=== PATIENT | male | born 1955 | race Caucasian/White ===

== ENCOUNTER → 2017-05-04 09:40 | Outpatient (CLI) | payer BC, SELFPAY ==
--- NOTE | 2017-05-04 09:43 | VDLE_ITS ---
Reason For Study: EDEMA RIGHT LEFT CFV is compressible, spontaneous, phasic, CFV is compressible, spontaneous, phasic, competent and demonstrates normal competent, and demonstrates normal augmentation. augmentation. PTV is compressible. FV is compressible, spontaneous, phasic, FV, POPV, T/P TRUNK AND PERV are DILATED and competent and demonstrates normal NONCOMPRESSIBLE C/W ACUTE DVT. augmentation. POP V is compressible, spontaneous, phasic, SFJ is competent. competent and demonstrates normal GSV is competent. augmentation. SSV is competent. T/P Trunk is compressible. Procedure PTV is compressible. Exam performed in department. LT PerV is compressible. The exam was diagnostic. SFJ is competent. A preliminary report was called and/or faxed GSV is competent. to Dr. Harper @ 10:35 am @ [phone]. SSV is competent. 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 Harper and to call office for follow up or questions. Interpretation Summary Acute deep vein thrombosis is noted in the right femoral vein. Acute deep vein thrombosis is noted in the right popliteal vein. Acute deep vein thrombosis is noted in the right tibio-peroneal trunk. Acute deep vein thrombosis is noted in the right peroneal vein. The right common femoral vein and posterior tibial vein are patent and compressible. The right common femoral vein is competent. Deep veins of the left lower extremity are patent and compressible segmentally. There is no evidence of left lower extremity deep vein thrombosis. Valvular competence appears intact within the proximal deep venous system on the left . The greater saphenous veins appear bilaterally patent and compressible segmentally. Sapheno-femoral junctions are bilaterally competent . Valvular competence appears to be intact segmentally within the greater saphenous veins bilaterally. Small saphenous veins are patent and competent bilaterally. Ordering Physician: Norman Harper Referring Physician: Leroy, Norman Performed By: Delia Trinh RDCS, RVT
== END ==
PROVIDERS: Family Provider Family Medicine; PCP Family Medicine; Visit Provider Family Medicine
DX: R60.0 Localized edema (principal)
CPT/HCPCS: 93970

== ENCOUNTER → 2017-05-08 11:29 | Outpatient (CLI) | payer BC, SELFPAY ==
--- NOTE | 2017-05-08 11:31 | CT_ITS ---
STUDY: CTA CHEST REASON FOR EXAM: Male, 61 years old. Dyspnea. Diagnosis of right lower extremity DVT. RADIATION DOSAGE (If Supplied By Facility): CTDIvol = ( 11.18 ) mGy, DLP = ( 798.80 ) mGycm TECHNIQUE: The examination was performed with the intravenous administration of 100mL ml of Isovue 370 contrast material. Post-processing of the angiographic images was performed, with multiplanar reformation and 3D reconstruction. Individualized dose optimization techniques were used for this CT. COMPARISON: None. FINDINGS: Prominent filling defects are seen in the distal portions of the right and left pulmonary arteries as well as of the upper and lower lobe pulmonary arterial branches. This is in keeping with a moderate flow of of bilateral pulmonary emboli. Normal thoracic aorta and visualized great vessels. There is no demonstrated aortic dissection. Normal heart and pericardium. Normal mediastinum. Normal hilar regions. Normal visualized trachea and bronchi. The lungs are well expanded. Normal pulmonary parenchyma. Normal pleura. Normal chest wall structures. There are degenerative changes of thoracic spine. Normal visualized upper abdomen. CT/CTA Chest W/WO Contrast IMPRESSION: Bilateral pulmonary embolism as described. The referring physician was notified of the results. Electronically Signed: Crow Avila MD at 12:53 EST Tel [phone], Service support ,
[2017-05-08 12:16] LABS: CREATININE FINGERSTICK 1.2 mg/dL (0.70-1.30); EGFR FINGERSTICK > 60.0000 mL/min (>60)
== END ==
PROVIDERS: Family Provider Family Medicine; PCP Family Medicine; Visit Provider Family Medicine
DX: I82.409 Acute embolism and thrombosis of unspecified deep veins of unspecified lower extremity (principal); R06.00 Dyspnea, unspecified
CPT/HCPCS: 71275; Q9967; A4216

== ENCOUNTER 2017-05-08 13:46 | Emergency (ER) | payer BC, SELFPAY ==
[2017-05-08 13:48] VITALS: BP 148/90; PULSE 62; RESP 16; TEMP 36.3; O2SAT 96; BMI 38.1
--- NOTE | 2017-05-08 15:34 | ED.VISSUMM ---
- ER Visit Summary Date of Service: 05/08/17 Chief Complaint: [Shortness of breath] History of Present Illness: The patient is a 61 M [presents to the emergency department with shortness of breath for several weeks. Patient states that 3 weeks ago he had a stress test and an echocardiogram with Dr. White that were unremarkable. Patient about a week ago developed swelling in his right leg and was diagnosed with a DVT 5 days ago and started on Xarelto. Today patient was following up with his primary care physician and complained of some ongoing dyspnea and therefore a CT scan of his chest was ordered which showed bilateral pulmonary emboli. Patient states that since being on the Xarelto his breathing is actually improved. He denies any chest pain. Overall patient feels well. Patient is never had a blood clot before. Patient states that last December he drove to [place] and back. He denies any trauma to his right leg. He denies recent surgery. He denies any history of cancer.] Physical Examination: [HEENT-PERRLA, EOMI. Cranial nerves II through XII grossly intact. TMs clear. Mucous membranes moist. No adenopathy. Cardiovascular-regular rate and rhythm without murmur or ectopy Lungs-clear to auscultation, chest wall stable without crepitus or subcu emphysema Abdomen-normoactive bowel sounds, soft, nontender, no rebound or rigidity, no peritoneal signs. Extremities-intact ?4, normal range of motion, normal pulses, atraumatic] Vital signs-blood pressure 148/90, temp 97 3, heart rate 62, respiratory rate 16, pulse ox 96% on room air Test Results: [None indicated] Emergency Department Course and Treatment: [Case was discussed with Dr. Norman Harper who is the patient's primary care physician. At this point patient is on the correct treatment and does not need any further intervention. Clinically patient looks well throughout a normal respiratory rate, blood pressure, and O2 saturation.] Treatment Plan: [Patient to continue with his Xarelto.] Disposition: [Discharged to home in stable condition] Impression: [Bilateral pulmonary emboli] This note was generated with [employer] dictation software. It may contain incorrect words, spelling, and punctuation that were not noted in review of the chart prior to signing ED Disposition - Plan for ED Patient: Chief Complaint: Shortness of Breath Referrals: Norman Harper MD [Primary Care Provider] -
--- NOTE | 2017-05-08 15:37 | ED.DCSUM_ITS ---
- ER Visit Summary Date of Service: 05/08/17 Chief Complaint: [Shortness of breath] History of Present Illness: The patient is a 61 M [presents to the emergency department with shortness of breath for several weeks. Patient states that 3 weeks ago he had a stress test and an echocardiogram with Dr. White that were unremarkable. Patient about a week ago developed swelling in his right leg and was diagnosed with a DVT 5 days ago and started on Xarelto. Today patient was following up with his primary care physician and complained of some ongoing dyspnea and therefore a CT scan of his chest was ordered which showed bilateral pulmonary emboli. Patient states that since being on the Xarelto his breathing is actually improved. He denies any chest pain. Overall patient feels well. Patient is never had a blood clot before. Patient states that last December he drove to [place] and back. He denies any trauma to his right leg. He denies recent surgery. He denies any history of cancer.] Physical Examination: [HEENT-PERRLA, EOMI. Cranial nerves II through XII grossly intact. TMs clear. Mucous membranes moist. No adenopathy. Cardiovascular-regular rate and rhythm without murmur or ectopy Lungs-clear to auscultation, chest wall stable without crepitus or subcu emphysema Abdomen-normoactive bowel sounds, soft, nontender, no rebound or rigidity, no peritoneal signs. Extremities-intact ?4, normal range of motion, normal pulses, atraumatic] Vital signs-blood pressure 148/90, temp 97 3, heart rate 62, respiratory rate 16 , pulse ox 96% on room air Test Results: [None indicated] Emergency Department Course and Treatment: [Case was discussed with Dr. Norman Harper who is the patient's primary care physician. At this point patient is on the correct treatment and does not need any further intervention. Clinically patient looks well throughout a normal respiratory rate, blood pressure, and O2 saturation.] Treatment Plan: [Patient to continue with his Xarelto.] Disposition: [Discharged to home in stable condition] Impression: [Bilateral pulmonary emboli] This note was generated with [employer] dictation software. It may contain incorrect words, spelling, and punctuation that were not noted in review of the chart prior to signing ED Disposition - Plan for ED Patient: Chief Complaint: Shortness of Breath Referrals: Norman Harper MD [Primary Care Provider] -
--- NOTE | 2017-05-08 15:38 | ED.DEP ---
ED Disposition - Plan for ED Patient: Chief Complaint: Shortness of Breath Instructions: Pulmonary Embolism Referrals: Norman Harper MD [Primary Care Provider] - 5-7 Days
[2017-05-08 15:44] VITALS: BP 142/86; PULSE 54; RESP 13; O2SAT 96
--- NOTE | 2017-05-08 15:44 | ED.RN ---
REVIEWED D/C INSTRUCTIONS, FOLLOW UP CARE, AND S/S THAT WOULD WARRANT A RETURN TO THE ED WITH PT. PT VERBALIZED AN UNDERSTANDING AND DENIES FURTHER QUESTIONS FOR THIS RN. PT SKIN P/W/D, RESP EVEN AND UNLABORED, PT A&O X 3, NO DISTRESS NOTED. PT AMBULATED OUT OF ED, GAIT STEADY.
== END 2017-05-08 15:45 | disposition home or self-care (01) ==
LOC: ED 14:53
PROVIDERS: Emergency Provider Emergency Medicine; Family Provider Family Medicine; PCP Family Medicine
DX: I26.99 Other pulmonary embolism without acute cor pulmonale (principal); I45.10 Unspecified right bundle-branch block; R60.0 Localized edema; F17.220 Nicotine dependence, chewing tobacco, uncomplicated; Z79.02 Long term (current) use of antithrombotics/antiplatelets
CPT/HCPCS: 99282

== ENCOUNTER → 2017-05-28 08:33 | Outpatient (CLI) | payer BC, SELFPAY ==
[2017-05-08 13:48] VITALS: BMI 38.1
[2017-05-08 15:44] VITALS: BP 142/86
--- NOTE | 2017-05-28 08:35 | VDLE_ITS ---
Reason For Study: Follow up DVT RIGHT LEFT GSV is normal. CFV is compressible, spontaneous, phasic, CFV is compressible, spontaneous, phasic, competent, and demonstrates normal competent and demonstrates normal augmentation. augmentation. FV is compressible, spontaneous, phasic, competent and demonstrates normal augmentation. PTV is compressible. Rt PopV, Rt T/P Trunk, and Rt PeroV are partially compressible, improvement noted from previous study Rt GastrocV is dilated and non compressible. Procedure Exam performed in department. A preliminary report was called and/or faxed to Dr. King. Interpretation Summary Acute deep vein thrombosis is noted in the right popliteal vein. Acute deep vein thrombosis is noted in the right tibio-peroneal trunk. Acute deep vein thrombosis is noted in the right peroneal vein. Acute deep vein thrombosis is noted in the right gastrocnemius vein. The remainder of the right lower extremity deep venous system is patent and compressible. The right common femoral vein and femoral vein are competent. The right greater saphenous vein appears patent and compressible segmentally. There has been improvement in the acute deep vein thrombosis since a prior study on 05/04/2017. Ordering Physician: Nj King Referring Physician: Norman Harper Performed By: Bibi Santoyo, ARIANNE, RVT
== END ==
PROVIDERS: Visit Provider Surgery
DX: I82.4Z1 Acute embolism and thrombosis of unspecified deep veins of right distal lower extremity (principal); I87.2 Venous insufficiency (chronic) (peripheral)
CPT/HCPCS: 93971

== ENCOUNTER → 2017-10-08 09:38 | Outpatient (CLI) | payer BC, SELFPAY ==
--- NOTE | 2017-10-08 09:41 | VDLE_ITS ---
Reason For Study: DVT RIGHT LEFT GSV is normal. CFV is compressible, spontaneous, phasic, CFV is compressible, spontaneous, phasic, competent, and demonstrates normal competent and demonstrates normal augmentation. augmentation. FV is compressible, spontaneous, phasic, competent and demonstrates normal augmentation. POP V is compressible, spontaneous, phasic, competent and demonstrates normal augmentation. T/P Trunk is compressible. PTV is compressible. RT PerV is compressible. Rt Gastroc V is noncompressible. Interpretation Summary Acute deep vein thrombosis is noted in the right gastrocnemius vein. The remainder of the right lower extremity deep venous system is patent and compressible. Valvular competence appears intact within the proximal deep venous system on the right . The right greater saphenous vein appears patent and compressible segmentally. Ordering Physician: Nj King Referring Physician: SHANNON ORDOÑEZ Performed By: Shilpa Liu, ARIANNE, RVT
== END ==
PROVIDERS: Visit Provider Surgery
DX: I82.401 Acute embolism and thrombosis of unspecified deep veins of right lower extremity (principal); I87.2 Venous insufficiency (chronic) (peripheral); I83.10 Varicose veins of unspecified lower extremity with inflammation
CPT/HCPCS: 93971

== ENCOUNTER → 2018-01-14 07:41 | Outpatient (CLI) | payer BC, SELFPAY ==
--- NOTE | 2018-01-14 07:43 | VDLE_ITS ---
Reason For Study: Limb Swelling RIGHT LEFT CFV is compressible, spontaneous, phasic, CFV is compressible, spontaneous, phasic, competent and demonstrates normal competent, and demonstrates normal augmentation. augmentation. FV is compressible, spontaneous, phasic, competent and demonstrates normal augmentation. POP V is compressible, spontaneous, phasic, competent and demonstrates normal augmentation. T/P Trunk is compressible. PTV is compressible. RT PerV is compressible. Rt GastrocV is partially compressible. SFJ is incompetent for greater than 0.5 seconds. GSV is incompetent throughout for greater than 0.5 seconds with a diameter measurement of 0.32 x 0.32 cm. SSV is competent. Procedure Exam performed in department. Interpretation Summary Chronic venous changes are noted in the right gastrocnemius vein, which is partially compressible. The remainder of the right lower extremity deep venous system is patent and compressible. Valvular competence appears intact within the proximal deep venous system on the right . The right greater saphenous vein appears patent and compressible segmentally. The right sapheno-femoral junction is incompetent . The right greater saphenous vein appears segmentally incompetent. The right small saphenous vein is patent and competent. Ordering Physician: Nj King Referring Physician: Miguel Harper M.D. Performed By: Jason Pardo RVT and Student
== END ==
PROVIDERS: Referring Provider Surgery; Visit Provider Surgery
DX: M79.605 Pain in left leg (principal); M79.89 Other specified soft tissue disorders; I87.2 Venous insufficiency (chronic) (peripheral); I83.10 Varicose veins of unspecified lower extremity with inflammation
CPT/HCPCS: 93971

== ENCOUNTER → 2018-08-29 | Outpatient (CLI) | payer BC, SELFPAY ==
--- NOTE | 2018-08-29 13:43 | VDLE_ITS ---
Reason For Study: DVT RIGHT LEFT GSV is normal. GSV is normal. CFV is compressible, spontaneous, phasic, CFV is compressible, spontaneous, phasic, competent and demonstrates normal competent, and demonstrates normal augmentation. augmentation. FV is compressible, spontaneous, phasic, FV is compressible, spontaneous, phasic, competent and demonstrates normal competent and demonstrates normal augmentation. augmentation. POP V is compressible, spontaneous, phasic, POP V is compressible, spontaneous, phasic, competent and demonstrates normal competent and demonstrates normal augmentation. augmentation. T/P Trunk is compressible. T/P Trunk is compressible. PTV is compressible. PTV is compressible. RT PerV is compressible. LT PerV is compressible. Rt GastrocV is partially compressible. No change from 01/14/2018. Procedure Exam performed in department. A preliminary report was called and/or faxed to [facility]. Interpretation Summary Chronic venous changes are noted in the right gastrocnemius vein, which is partially compressible. The remainder of the right lower extremity deep venous system is patent and compressible. Deep veins of the left lower extremity are patent and compressible segmentally. There is no evidence of left lower extremity deep vein thrombosis. Valvular competence appears intact within the proximal deep venous systems bilaterally. The greater saphenous veins appear bilaterally patent and compressible segmentally. There has been no significant change in the right lower extremity since a prior study on 01/14/2018. Ordering Physician: Keanu Daniels Referring Physician: Leroy Austin Performed By: Nae Aguilera RVT
[2018-08-29 16:16] LABS: D-Dimer Quantitative (DVT/PE) 0.75 FEU/ug/m (0.27-0.49)
== END | disposition home or self-care (01) ==
PROVIDERS: Referring Provider Internal Medicine Pulmonary Disease; Visit Provider Internal Medicine Pulmonary Disease
DX: I82.409 Acute embolism and thrombosis of unspecified deep veins of unspecified lower extremity (principal); I26.99 Other pulmonary embolism without acute cor pulmonale
CPT/HCPCS: 36415; 85379; 93970

== ENCOUNTER 2018-12-05 05:46 | Day surgery (SDC) | payer BC, SELFPAY ==
[2018-10-16 08:58] VITALS: BMI 38.1
[2018-12-05] VITALS (7 sets, daily range): BP systolic 105–141; BP diastolic 70–86; PULSE 49–53; RESP 16–18; TEMP 36.4; O2SAT 94–97; BMI 37.0
--- NOTE | 2018-12-05 | MASS_PTH ---
PATIENT: SIMIN JULIEN [place] [facility] [id number] AGE/SX: 63/M ROOM: RE12/05/[address]: Dr. Jose Hudson MD : 1955 BED: DIS: 12/05/2018 SPEC #: [id number] RECD: 12/05/18 12:02 STATUS: TOMER ELSY #: [id number] DELON: 12/05/18 00:[address]: Jose Hudson DEPT: SURGICAL PATHOLOGY RECD BY: Tigre Smith ENTERED: 12/05/18 12:03 SP TYPE: Mass OTHR DR: Norman Harper Tissues: A - CYST B - Back, NOS Procedures: Surgery Specimen Level III Surgery Specimen Level IV HEADER OPERATION: Excision infected cystic lesions, posterior lateral neck PRE-OP DIAGNOSIS: 1.5 chronically infected soft tissue mass left posterolateral neck by occipital hairline; 2 cm soft tissue mass mid middle back; chronic cellulitis, skin cancer TISSUE SUBMITTED: A - Posterior lateral neck infected cystic lesion, suture at 12 o'clock, left, B - Mid middle back soft tissue mass MICROSCOPIC DIAGNOSIS A. Cyst, posterior lateral neck, excision: Extensive solar elastosis and mild actinic change. Epidermal inclusion cyst with features of rupture. B. Middle back soft tissue mass, excision: Fragments of epidermal inclusion cyst. AM:carmelita 12/06/18 COMMENT Case has been reviewed in consultation with Dr. De Santiago who concurs with the above diagnosis. IDC:SJ MICROSCOPIC DESCRIPTION Slides are reviewed. GROSS DESCRIPTION A - Received in fixative is one container labeled with the patient's name and designated posterior lateral neck infected cystic lesion, suture at 12 o'clock, left. The specimen consists of a child-white skin ellipse measuring 2 x 0.7 cm and up to 1.2 cm in thickness. The specimen is oriented by a suture identifying 12 o'clock. The specimen is inked as follows: 12 o'clock margin - black, 6 o'clock margin - blue. The specimen is serially sectioned and submitted entirely in one cassette. B - Received in fixative is one container labeled with the patient's name and designated mid middle back soft tissue mass. The specimen consists of a disrupted piece of skin ellipse with underlying soft tissue measuring 2.5 x 1 cm and up to 2.5 cm in thickness. The specimen is previously partially sectioned. Sections reveal a disrupted cyst measuring 2 cm in greatest dimension. The cyst appears to be filled child-white cheesy material. Loader Engineer sections are submitted in two cassettes. / SJ:carmelita 12/05/18 TC:1 CPT: 63892, 21494
--- NOTE | 2018-12-05 00:09 | HP.PCM_ITS ---
History and Physical Date of Admission: 12/05/18 HISTORY OF PRESENT ILLNESS 63 year old man presents with enlarging soft tissue masses left posterolateral neck by the occipital hairline and the mid middle back. He states the neck mass has been recently infected. He denies trauma. He denies any recent fever. He presents at this time for further evaluation and treatment. PAST MEDICAL HISTORY RBBB (right bundle branch block) Palpitations Chest pain, unspecified Bilateral leg edema Anemia Bone fracture GERD (gastroesophageal reflux disease) History of blood clots Skin cancer PAST SURGICAL HISTORY colonoscopy endoscopy ALLERGIES Penicillins MEDICATIONS Omeprazole [Prilosec] Rivaroxaban [Xarelto] aspirin ferrous sulfate FAMILY HISTORY Father - Lung cancer, COPD (chronic obstructive pulmonary disease), Skin cancer Brother - IBS (irritable bowel syndrome) Mother - Psychiatric care, Skin cancer SOCIAL HISTORY Smoking Status: Former smoker how long ago did patient quit smokin alcohol intake: current alcohol intake frequency: a few times a week Alcohol type: beer substance use type: does not use REVIEW OF SYSTEMS General - Denies fever, fatigue, and weight loss. Eyes - Denies cataracts and glaucoma. ENT - Denies nasal congestion and sore throat. Endocrine - Denies excessive thirst and urination. Skin - Denies skin cancer. Has enlarging soft tissue masses left posterolateral neck by occipital hairline and mid middle back. The neck mass had been recently infected. Musculoskeletal - Denies joint pain, joint stiffness, weakness of muscles and joints, back pain, and arthritis. Neuro - Denies headaches. Cardiovascular - Denies chest pain, fatigue, and shortness of breath with exertion. Psych - Denies anxiety and depression. Respiratory - Denies chronic cough and shortness of breath. Has sleep apnea. Patient is a former smoker. Gastrointestinal - Denies nausea, vomiting, diarrhea, and constipation. Hematologic - Denies abnormal bruising and bleeding. Has anemia. Genitourinary - Denies hematuria and urinary frequency. PHYSICAL EXAMINATION General - Alert and Oriented. HEENT - PERRL. EOMI. Throat is clear. No suspicious lesions noted. Neck - Supple and nontender. No cervical adenopathy. On the left posterolateral neck by occipital hairline is a soft tissue mass that measures 1.5 cm. Mobile. History of chronic cellulitis and recent infection. No ulceration. Mass is nontender. Lungs - Clear to auscultation. Heart - Regular rate and rhythm. Abdomen - Soft and nondistended. Extremities - FROM. No axillary adenopathy. Radial pulses are palpable. No suspicious lesions noted. Back - On the mid middle back is a soft tissue mass that measures 2 cm. Mobile. No evidence of infection. No ulceration. Mass is nontender. Neuro - CN II-XII grossly intact. Psych - Normal mood and affect. ASSESSMENT 1. 1.5 cm chronically infected soft tissue mass left posterolateral neck by occipital hairline. 2. 2 cm soft tissue mass mid middle back. 3. Chronic cellulitis. 4. Personal history of skin cancer. 5. Family history of skin cancer. 6. Former smoker. PLAN Recommend excision of these soft tissue masses (left posterolateral neck by occipital hairline and mid middle back) which can be done under local anesthesia and IV sedation on an outpatient basis. Will send the masses to Pathology for analysis to rule out carcinoma. If there is evidence of residual infection, then a culture will be obtained. If pus is seen, then the wound would be left open and packed with Silver dressing changes daily. Once the infection is under control and the inflammation has subsided, then can proceed with delayed complex secondary wound closure. Patient was informed of the risks and complications of the procedure including alternatives to surgery. These were discussed with the patient personally. Patient voices understanding and wishes to proceed. Some of the risks and complications were included in a form from the [employer].
[2018-12-05] MEDS: Lactated Ringers 1,000 ML 100 ML IV (06:38)
[2018-12-05] MEDS: Mupirocin Ointment 22gm Tube 1 APPLIC (08:40)
--- NOTE | 2018-12-05 08:44 | PCM.OPRPT ---
Report of Operation Date of Procedure: 12/05/18 Pre-Operative Diagnosis: 1. 1.5 cm chronically infected soft tissue mass left posterolateral neck by occipital hairline. 2. 2 cm soft tissue mass mid middle back. 3. Chronic cellulitis. 4. Personal history of skin cancer. 5. Family history of skin cancer. 6. Former smoker. Post-Operative Diagnosis: Same. Surgery/Procedure Performed:: 1. Excision 1.5 cm chronically infected soft tissue mass left posterolateral neck by occipital hairline with 3 cm layered closure. 2. Excision 2 cm soft tissue mass mid middle back with rhomboid transposition skin flap reconstruction (8 cm2). Description of Surgical Findings:: 63 year old man presents with enlarging soft tissue masses left posterolateral neck by the occipital hairline and the mid middle back. He states the neck mass has been recently infected. He denies trauma. He denies any recent fever. Patient was informed of the risks and complications of the procedure including alternatives to surgery. These were discussed with the patient personally. Patient voices understanding and wishes to proceed. Some of the risks and complications were included in a form from the [employer]. I used Jose absorbable hemostat. Reference Number - [id number]. Lot Number - [id number]. Expiration - April 29, 2023. pattern vault clerk: None Type of Anesthesia:: Local MAC - xylocaine with epinephrine and IV sedation. Specimen's removed: 1. Soft tissue mass left posterolateral neck by occipital hairline to Pathology. 2. Soft tissue mass mid middle back to Pathology. Drains: None. Estimated Blood Loss (mL): 25 ml. Description of Procedure: Patient was taken to OR in supine position and was given IV sedation. He was then placed in the lateral position. The left posterolateral neck and mid middle back lesions were prepped and draped in the usual fashion. SCD's were placed for DVT prophylaxis. Perioperative antibiotics were given intravenously. The left posterolateral neck and mid middle back lesions were infiltrated with xylocaine and epinephrine. After waiting 5 minutes for the anesthetic to take effect, I excised the soft tissue mass left posterolateral neck down into the subcutaneous tissue. The skin was adherent to the mass. It extended down to the muscle. After dissecting the soft tissue mass off the muscle, it was sent to Pathology for analysis to rule out carcinoma. No pus was seen. The wound was irrigated with saline. Hemostasis was obtained with electrocautery. I then sprayed Jose absorbable hemostat into the wound to minimize seroma formation. The wound was closed in a layered fashion with 4-0 Monocryl interrupted sutures for the deep dermis and subcutaneous tissue. The skin was approximated with 4-0 Prolene simple interrupted sutures. The length of the layered closure was 3 cm. An elliptical incision was made over the soft tissue mass mid middle back. The mass was adherent to the overlying skin. The mass was much larger than what was palpated on the skin. Therefore additional skin needed to be excised. This made primary closure difficult. The mass was sent to Pathology for analysis to rule out carcinoma. The mass was multilobulated. No pus was seen. I designed a rhomboid flap adjacent to the wound. Incisions were made and the rhomboid flap was elevated on a subcutaneous pedicle and easily transposed into the defect with minimal tension and minimal distortion. Hemostasis was obtained with electrocautery. The wound was irrigated with saline. I then sprayed Jose absorbable hemostat into the wound to minimize seroma formation. The rhomboid flap was transposed into the defect and closed in a layered fashion with 4-0 Monocryl interrupted sutures for the deep dermis and subcutaneous tissue. The skin was approximated with 4-0 Prolene simple interrupted sutures. Antibiotic ointment was applied to both incisions followed by gauze compression dressing. Patient tolerated the procedure well and was sent to PACU in satisfactory condition. Patient will be sent home on antibiotics and pain medication. He will keep his head elevated during the initial postop period and be on a lifting restriction. Patient will followup in a week for a wound check and for discussion of the pathology report I will remove the sutures in two weeks. Grafts/Implants Used: None. - Complications None. - Admit VTE Documentation VTE Present on Admission: No VTE Mechan Device Prophylaxis: SCD's VTE Pharm Prophylaxis ordered?: No Code Visit Surgery Charges CPT - 68472 ICD-10 - R22.1, L72.0, L03.90, Z80.8, Z85.828 21508 R22.1, L72.0, L03.90, Z80.8, Z85.828 94767 R22.2, L72.0, Z80.8, Z85.828
--- NOTE | 2018-12-05 08:54 | DCINST_ITS ---
You will use the following diet at home:: No restrictions Discharge Activity: May not drive while taking narcotic pain medications., May Shower - in two days., - - no heavy lifting. keep head elevated. May shower in (days): 2 May resume sexual activity in: No Restrictions Weight Bearing Status: Weight bearing as tolerated Lifting Restrictions: 20 lbs. Keep extremity elevated above heart level: - - elevate head. Call your doctor if your incision/area has: Continuous Slow Oozing, Sudden Increased Bleeding, Increased Pain/ Swelling, Increased Redness, Foul Smelling Discharge, Swelling at the incision site Call your doctor if you observe: Fever of 101 or Higher, Coldness, Increased Pain, Shortness of breath, Chest pain, Calf discomfort, Uncontrolled pain Suture Line Care: - - apply antibiotic ointment to suture lines after dressing removed in two days. Change Dressing in (Days):: 2 - antibiotic ointment daily followed by dry gauze. Cleanse incision/area with: - - may get incision wet in the shower in two days. Allergies/Adverse Reactions: Allergies Penicillins Allergy (Verified 11/28/18 13:35) Hives Medications to take at Discharge Omeprazole [Prilosec] 20 mg PO DAILY 05/08/17 ferrous sulfate 325 mg (65 mg iron) tablet 325 mg PO DAILY tab 08/29/18 Clindamycin HCl [Cleocin] 300 mg PO TID #21 cap 12/05/18 Lactobacillus Acidophilus/Fos [Acidophilus Probiotic Tablet] 1 ea PO BID #20 tab 12/05/18 Oxycodone HCl/Acetaminophen [Percocet 5/325] 1 tab PO 4X/DAY PRN PRN 7 Days #30 tab 12/05/18 The following prescriptions were given: Lactobacillus Acidophilus/Fos [Acidophilus Probiotic Tablet] 1 ea PO BID #20 tab Prescription Printed Clindamycin HCl [Cleocin] 300 mg PO TID #21 cap Prescription Printed Oxycodone HCl/Acetaminophen [Percocet 5/325] 1 tab PO 4X/DAY PRN PRN 7 Days #30 tab PRN Reason: Pain Prescription Printed Primary Care Physician: Norman Harper [Primary Care Provider] - Test Results: Test results from this visit will be discussed in further detail at your follow- up appointment, if applicable. Please Follow Up With: Jsoe Hudson MD When: one week. call [phone] for appt. Proposed Discharge Date: 12/05/18
== END 2018-12-05 10:13 | disposition home or self-care (01) ==
LOC: SDC 05:47 → AC 05:48
PROVIDERS: Referring Provider Surgery; Visit Provider Surgery
PROC: (CPT 11422; principal; 2018-12-05 07:20)
DX: L57.8 Other skin changes due to chronic exposure to nonionizing radiation (principal); L72.0 Epidermal cyst; K21.9 Gastro-esophageal reflux disease without esophagitis; D64.9 Anemia, unspecified; G47.30 Sleep apnea, unspecified; Z79.82 Long term (current) use of aspirin; Z79.02 Long term (current) use of antithrombotics/antiplatelets; Z79.899 Other long term (current) drug therapy; Z85.828 Personal history of other malignant neoplasm of skin; Z87.891 Personal history of nicotine dependence; Z86.718 Personal history of other venous thrombosis and embolism
CPT/HCPCS: 00300; 11422; 12032; 14000; 88304; 88305; J7120

== ENCOUNTER → 2018-12-25 | Outpatient (CLI) | payer BC, SELFPAY ==
[2018-12-25 14:51] VITALS: BMI 37.0
== END | disposition home or self-care (01) ==
PROVIDERS: Referring Provider Nurse Practitioner Family; Visit Provider Nurse Practitioner Family
DX: L72.0 Epidermal cyst (principal); T81.89XA Other complications of procedures, not elsewhere classified, initial encounter; Z85.828 Personal history of other malignant neoplasm of skin
CPT/HCPCS: 87070; 87075; 87077; 87186; 87205

== ENCOUNTER → 2019-02-14 | Outpatient (CLI) | payer BC, SELFPAY ==
[2019-01-31 15:08] VITALS: BMI 37.0
[2019-02-20 08:08] LABS: Protein C Antigen 67 % (60-150); Protein C, Functional 82 % (73-180)
[2019-02-20 10:10] LABS: Protein S, Free 91 % (57-157); Protein S, Funtional 75 % (63-140); Protein S, Total 71 % (60-150)
== END | disposition home or self-care (01) ==
LOC: MTLAB 08:27
PROVIDERS: Referring Provider Internal Medicine Pulmonary Disease; Visit Provider Internal Medicine Pulmonary Disease
DX: Z86.711 Personal history of pulmonary embolism (principal); Z86.718 Personal history of other venous thrombosis and embolism
CPT/HCPCS: 36415; 81241; 85302; 85303; 85305; 85306

== ENCOUNTER → 2019-06-03 | Outpatient (CLI) | payer BC, SELFPAY ==
[2018-10-16 08:58] VITALS: BMI 38.1
[2019-01-31 15:08] VITALS: BMI 37.0
--- NOTE | 2019-06-03 12:22 | VDLE_ITS ---
Reason For Study: DVT RIGHT LEFT GSV is normal. GSV is normal. CFV is compressible, spontaneous, phasic, CFV is compressible, spontaneous, phasic, competent and demonstrates normal competent, and demonstrates normal augmentation. augmentation. FV is compressible, spontaneous, phasic, FV is compressible, spontaneous, phasic, competent and demonstrates normal competent and demonstrates normal augmentation. augmentation. POP V is compressible, spontaneous, phasic, POP V is compressible, spontaneous, phasic, competent and demonstrates normal competent and demonstrates normal augmentation. augmentation. T/P Trunk is compressible. T/P Trunk is compressible. PTV is compressible. PTV is compressible. RT PerV is compressible. LT PerV is compressible. Rt GastrocV is partially compressible. No change from 08/29/2018. Procedure Exam performed in department. The exam was diagnostic. A preliminary report was called and/or faxed to Dr. Daniels's office. Interpretation Summary Chronic venous changes are noted in the right gastrocnemius vein, which is partially compressible. The remainder of the right lower extremity deep venous system is patent and compressible. Deep veins of the left lower extremity are patent and compressible segmentally. There is no evidence of acute deep vein thrombosis on either side. Valvular competence appears intact within the proximal deep venous systems bilaterally. The greater saphenous veins appear bilaterally patent and compressible segmentally. There has been no significant change since a prior study on 08/29/2018. Ordering Physician: Keanu Daniels Performed By: Sergio Pardo RVYoni
[2019-06-03 13:00] LABS: D-Dimer Quantitative (DVT/PE) 0.65 FEU/ug/m (0.27-0.49)
== END | disposition home or self-care (01) ==
PROVIDERS: Referring Provider Internal Medicine Pulmonary Disease; Visit Provider Internal Medicine Pulmonary Disease
DX: I26.99 Other pulmonary embolism without acute cor pulmonale (principal); I82.409 Acute embolism and thrombosis of unspecified deep veins of unspecified lower extremity
CPT/HCPCS: 36415; 85379; 93970

== ENCOUNTER → 2019-09-24 | Outpatient (CLI) | payer BC, SELFPAY ==
[2019-01-31 15:08] VITALS: BMI 37.0
[2019-09-24 10:28] LABS: Absolute Lymphocyte Count 1.96 X10^3/uL (0.83-4.51); Absolute Neutrophil Count 3.7 X10^3/uL (2.0-7.7); Basophil# 0.02 X10^3/uL; Basophil% 0.3 % (0-1); Eosinophil# 0.15 X10^3/uL; Eosinophils% 2.4 % (0-5); Hematocrit 42.7 % (40-54); Hemoglobin 14.2 g/dL (13.0-16.5); Lymphocyte # 1.96 X10^3/ul (4.0); Lymphocyte % 31.1 % (19-41); Mean Corp Hgb Conc 33.3 g/dL (32-36); Mean Corpuscular Hgb 31.5 pg (27.0-32.0); Mean Corpuscular Volume 94.7 fL (80-94); Mean Platelet Vol. 9.6 fl (6.2-12.0); Monocyte# 0.51 X10^3/uL; Monocyte% 8.1 % (0-10); NRBC Flagged by Analyzer 0 % (0-5); Neutrophil # 3.66 X10^3/uL (2.7-7.7); Neutrophil % 57.9 % (47-70); Platelet Count 174 K/mm3 (150-450); RBC Distribution Width CV 11.9 % (11.6-14.6); RBC Distribution Width SD 41.1 fl (35.1-43.9); Red Blood Count 4.51 M/mm3 (4.6-6.2); White Blood Count 6.3 K/mm3 (4.4-11.0)
[2019-09-24 10:48] LABS: ALB/GLOB Ratio 0.9 RATIO (0.9-2.4); AST(SGOT) 23 U/L (15-37); Alanine Aminotransfer ALT/SGPT 33 U/L (16-61); Albumin, Serum 3.4 g/dL (3.2-5.0); Alkaline Phosphatase 60 U/L (45-117); Anion Gap 5 (5-15); BUN 16 mg/dL (7-18); BUN/Creat Ratio 18.8 RATIO (10-20); Calcium,Total 8.4 mg/dL (8.5-10.1); Chloride 105 mmol/L (98-107); Cholesterol 140 mg/dL (200); Creatinine, Serum 0.85 mg/dL (0.70-1.30); EST Glomerular Filtration Rate 96 mL/min (>60); Est Glom Filt Rate - Afr Amer 117 mL/min (>60); Ferritin 111 ng/mL (26-388); Globulin 3.8 g/dL (2.2-4.2); Glucose 98 mg/dL (74-106); High Density Lipoprotein 44 mg/dL; Iron 70 ug/dL (65-175); Iron Binding Capacity,Total 284 ug/dL (250-450); PERCENT IRON SATURATION 24.6 % (15.0-55.0); PSA,Total - Annual Screen 0.73 ng/mL (0.00-4.00); Potassium 4.2 mmol/L (3.5-5.1); Protein, Total 7.2 g/dL (6.4-8.2); Sodium Level 138 mmol/L (136-145); Triglycerides 67 mg/dL; Very Low Density Lipoprotein 13 mg/dL (5-40)
[2019-09-24 10:49] LABS: Color, Urine Yellow (Yellow); Glucose, Dipstick Normal (Normal); Ketone-Dipstick Negative (Negative); Leukocyte Esterase-Dipstick Negative /ul (Negative); Nitrite-Dipstick Negative (Negative); Occult Blood-Urine 50 /ul (Negative); Protein-Dipstick Negative (Negative); Urine Bilirubin Dipstick Negative (Negative); Urine Clarity Clear (Clear); Urine Urobilinogen Normal (Normal)
== END | disposition home or self-care (01) ==
LOC: MTLAB 08:21
DX: Z00.00 Encounter for general adult medical examination without abnormal findings (principal); D50.9 Iron deficiency anemia, unspecified; Z12.5 Encounter for screening for malignant neoplasm of prostate
CPT/HCPCS: 36415; 80053; 80061; 81002; 82728; 83540; 83550; 84153; 85025; G0103

== ENCOUNTER → 2020-06-23 09:20 | Outpatient (CLI) | payer BC, SELFPAY ==
[2019-01-31 15:08] VITALS: BMI 37.0
--- NOTE | 2020-06-23 09:37 | VDLE_ITS ---
Reason For Study: Hx DVT and PE RIGHT LEFT GSV is normal. GSV is normal. CFV is compressible, spontaneous, phasic, CFV is compressible, spontaneous, phasic, competent and demonstrates normal competent, and demonstrates normal augmentation. augmentation. FV is compressible, spontaneous, phasic, FV is compressible, spontaneous, phasic, competent and demonstrates normal competent and demonstrates normal augmentation. augmentation. POP V is compressible, spontaneous, phasic, Lt PopV is partially compressible with bright competent and demonstrates normal intraluminal echoes consistent with Chronic augmentation. DVT. Normal venous flow is noted. T/P Trunk is compressible. T/P Trunk is compressible. PTV is compressible. PTV is compressible. RT PerV is compressible. LT PerV is compressible. Right GastrocV is partially compressible with bright intraluminal echoes consistent with Chronic DVT. Interpretation Summary Chronic venous changes are noted in the right gastrocnemius vein, which is partially compressible and demonstrates bright intraluminal echogenicity. The remainder of the right lower extremity deep venous system is patent and compressible. Chronic venous changes are noted in the left popliteal vein, which is partially compressible and demonstrates bright intraluminal echogenicity. The remainder of the left lower extremity deep venous system is patent and compressible. Valvular competence appears intact within the proximal deep venous systems bilaterally. The great saphenous veins appear bilaterally patent and compressible segmentally. Ordering Physician: Keanu Daniels Referring Physician: Norman Harper Performed By: Nae Aguilera RVT
[2020-06-23 10:07] LABS: D-Dimer Quantitative (DVT/PE) 0.49 FEU/ug/m (0.27-0.49)
== END ==
PROVIDERS: Referring Provider Internal Medicine Pulmonary Disease; Visit Provider Internal Medicine Pulmonary Disease
DX: Z86.718 Personal history of other venous thrombosis and embolism (principal); Z86.711 Personal history of pulmonary embolism
CPT/HCPCS: 36415; 85379; 93970

== ENCOUNTER → 2020-11-03 09:49 | Outpatient (CLI) | payer MEDICARE, BC, SELFPAY ==
[2020-11-03 12:22] LABS: D-Dimer Quantitative (DVT/PE) 0.64 FEU/ug/m (0.27-0.49)
== END ==
PROVIDERS: Referring Provider Internal Medicine Pulmonary Disease; Visit Provider Internal Medicine Pulmonary Disease
DX: R06.00 Dyspnea, unspecified (principal); Z86.711 Personal history of pulmonary embolism
CPT/HCPCS: 36415; 85379

== ENCOUNTER → 2020-11-17 12:34 | Outpatient (CLI) | payer MEDICARE, BC, SELFPAY | PROVIDERS: Referring Provider Internal Medicine Pulmonary Disease; Visit Provider Internal Medicine Pulmonary Disease | DX: Z01.84 Encounter for antibody response examination (principal); Z86.16 Personal history of COVID-19 | CPT/HCPCS: 36415; 86769 ==

== ENCOUNTER 2021-05-10 12:33 | Outpatient (CLI) | payer MEDICARE, BC, SELFPAY ==
--- NOTE | 2021-05-10 12:43 | VDLE_ITS ---
Reason For Study: DVT, PE RIGHT LEFT GSV is normal. GSV is normal. CFV is compressible, spontaneous, phasic, CFV is compressible, spontaneous, phasic, competent and demonstrates normal competent, and demonstrates normal augmentation. augmentation. FV is compressible, spontaneous, phasic, FV is compressible, spontaneous, phasic, competent and demonstrates normal competent and demonstrates normal augmentation. augmentation. POP V is compressible, spontaneous, phasic, Lt PopV is partially compressible with bright competent and demonstrates normal intraluminal echoes consistent with Chronic augmentation. DVT. Normal venous flow is noted. T/P Trunk is compressible. T/P Trunk is compressible. PTV is compressible. PTV is compressible. RT PerV is compressible. LT PerV is compressible. Right GastrocV is partially compressible with bright intraluminal echoes consistent with Chronic DVT. Procedure This is a venous duplex using B-mode, color flow and spectral Doppler. Exam performed in department. The exam was diagnostic. A preliminary report was called and/or faxed to Dr. Daniels. VL/Venous Duplex US - Guero Extrem Interpretation Summary Chronic venous changes are noted in the right gastrocnemius vein, which is part ially compressible and demonstrates bright intraluminal echogenicity. The remainder of the right l ower extremity deep venous system is patent and compressible. Chronic venous changes are noted in t he left popliteal vein, which is partially compressible and demonstrates bright intraluminal echo genicity. The remainder of the left lower extremity deep venous system is patent and compress ible. Valvular competence appears intact within the proximal deep venous systems bilaterally. The great saphenous veins appear bilaterally patent and compressible segmentally. Ordering Physician: Keanu Daniels Performed By: Sergio Pardo RVT
== END 2021-05-10 23:59 | disposition home or self-care (01) ==
LOC: CVS 12:36
PROVIDERS: Referring Provider Internal Medicine Pulmonary Disease; Visit Provider Internal Medicine Pulmonary Disease
DX: I82.421 Acute embolism and thrombosis of right iliac vein (principal); I26.99 Other pulmonary embolism without acute cor pulmonale
CPT/HCPCS: 93970

== ENCOUNTER 2022-05-10 12:36 | Emergency (ER) | payer MEDICARE, BC, SELFPAY ==
[2022-05-10 12:37] VITALS: BP 164/89; PULSE 81; RESP 20; TEMP 36.6; O2SAT 95; BMI 37.8
--- NOTE | 2022-05-10 14:03 | EKG12_ITS ---
Test Reason : SOB Blood Pressure : / mmHG Vent. Rate : 064 BPM Atrial Rate : 064 BPM P-R Int : 174 ms QRS Dur : 120 ms QT Int : 444 ms P-R-T Axes : 084 055 044 degrees QTc Int : 458 ms Normal sinus rhythm Right bundle branch block Abnormal ECG Confirmed by MAXIMUS CONTRERAS, MAC ([id number]), digital editor KASSI LAL ([id number]) on 05/12/2022 10:05:14 AM Referred By: MOIRA Confirmed By:MAC STROUD MD
--- NOTE | 2022-05-10 14:03 | CT_ITS ---
STUDY: CTA CHEST REASON FOR EXAM: Male, 66 years old. Dyspnea history of PE RADIATION DOSAGE (If Supplied By Facility): CTDIvol = ( 17.41 ) mGy, DLP = ( 526.40 ) mGycm TECHNIQUE: The examination was performed with the intravenous administration of IV 100mL Isovue-370. Post-processing of the angiographic images was performed, with multiplanar reformation and 3D reconstruction. Individualized dose optimization techniques were used for this CT. COMPARISON: Comparison is made with prior study dated 05/08/2017. FINDINGS: Intraluminal filling defects are seen in the distal portion of the right pulmonary artery extending into the interlobar artery and branches of the right lower lobe pulmonary arterial system. Intraluminal filling defects are also seen in the branches of the left lower lobe pulmonary arterial branches. This is in keeping with bilateral pulmonary emboli. There is atherosclerotic calcification of the aortic arch with tortuosity. There is no demonstrated aortic dissection. Normal heart and pericardium. Normal mediastinum. Normal hilar regions. Normal visualized trachea and bronchi. The lungs are well expanded. Normal pulmonary parenchyma. Normal pleura. Normal chest wall structures. There are degenerative changes of thoracic spine. Normal visualized upper abdomen. CT/CTA Chest W/WO Contrast IMPRESSION: Bilateral acute pulmonary emboli worse in the right side as described. Electronically Signed: Crow Avila MD at 15:30 EST ,
--- NOTE | 2022-05-10 14:05 | ED.VIS.DYS ---
HPI History of Present Illness Chief Complaint: Shortness of Breath Narrative Narrative: 66-year-old male past medical history of remote DVT and right lower extremity with 3 pulmonary emboli remotely presents with shortness of breath and dyspnea on exertion such as carrying things. He denies any chest pain or heaviness, no recent fevers or chills, no cough, no increased welling of his legs. He states that 3 years ago, he had a DVT in his right lower leg. They were monitoring it and monitor it twice a year. He was on Xarelto for 6 months. He states they checked him for a clotting disorder which was negative. His DVT has resolved into a small little gel behind his right knee. 2 years ago he developed COVID and had an elevated D-dimer so they put him on Xarelto again for [address] Daniels as his provider relations consultant and was told if he ever has the feeling again of the dyspnea on exertion or the feeling like when he had 2 PEs in 1 lung and another PE in the other lung, that he should get to the emergency department. He denies any hemoptysis, no other symptoms. No history of COPD or CHF. He quit smoking a while ago. [facility] Medical History (Updated 05/10/22 @ 16:46 by Panda Herrera MD) Abnormal electrocardiogram Anemia Bilateral leg edema Bone fracture Chest pain, unspecified GERD (gastroesophageal reflux disease) History of blood clots Palpitations RBBB (right bundle branch block) Skin cancer Home Medications omeprazole 20 mg capsule,delayed release 20 mg PO DAILY 05/08/17 [History Last Taken 12/05/18 05:00 20 MG] ferrous sulfate 325 mg (65 mg iron) tablet (iron) 325 mg PO DAILY 08/29/18 [History Last Taken Unknown] Lactobacillus acidophilus 500 million cell-fructooligosac 50 mg tablet 1 ea PO BID #20 tabs 12/05/18 [Rx Last Taken Unknown] metronidazole 500 mg tablet 500 mg PO TID #30 tabs 12/31/18 [Rx Last Taken Unknown] levofloxacin 500 mg tablet (Levaquin) 500 mg PO DAILY #14 tabs 01/26/19 [Rx Last Taken Unknown] rivaroxaban 15 mg (42)-20 mg (9) tablets in a starter pack (Xarelto DVT-PE Treatment 30-Day Starter) See Rx Instructions PO .COMPLEX #51 tabs 05/10/22 [Rx Last Taken Unknown] Allergy/AdvReac Type Severity Reaction Status Date / Time Penicillins Allergy Hives Verified 05/10/22 12:38 Family History Father Lung cancer COPD (chronic obstructive pulmonary disease) Skin cancer Brother IBS (irritable bowel syndrome) Mother Psychiatric care Skin cancer Surgical History History of colonoscopy History of endoscopy Social History Smoking Status: Current some day smoker tobacco type: cigars how long ago did patient quit smokin alcohol intake: current alcohol intake frequency: a few times a week Alcohol type: beer substance use type: does not use caffeine: Yes Type: coffee Number of servings: 2 what type of physical activity do you participate in: none seatbelt use: always do you feel safe at home: Yes additional social history: DOES USE ASPIRIN ROS ROS ED ROS Narrative Constitutional: No fever, no chills. HEENT: No sore throat. No neck pain. No loss of vision. No rhinorrhea. Cardiovascular: No chest pain. No palpitations. No pedal edema. Respiratory: No cough, positive dyspnea on exertion such as lifting, positive shortness of breath. Abdominal: No abdominal pain. No nausea. No vomiting. Genitourinary: No dysuria. No hematuria. Musculoskeletal: No myalgias. No arthralgias. Neurologic: No headaches. No dizziness. No lightheadedness. Skin: No rash. No change in color. Psychiatric: No depression. No anxiety. EXAM Physical Exam Narrative Exam Narrative: Afebrile. Vital signs noted. HEENT: Normocephalic. Atraumatic. PERRL, EOMI. Neck soft and supple. No point tenderness or step off. Cardiovascular: Regular rate and rhythm. No murmurs, rubs, or gallops appreciated. Respiratory: No tachypnea. Lungs clear to auscultation bilaterally. Gastrointestinal: Abdomen soft, nontender, with normoactive bowel sounds. No rebound or guarding. Neurological: Awake. Alert. Nonfocal, nonlateralizing. Skin: No rash. Normal color. No pallor. Musculoskeletal: No pedal edema. Full range of motion extremities. Const Vital Signs: 05/10/22 12:37 05/10/22 13:55 05/10/22 14:57 Temperature 98 F Temperature Source Oral Pulse Rate 81 64 Respiratory Rate 20 H 16 Respiratory Effort Short of Breath Blood Pressure 164/89 H 136/82 H Blood Pressure Mean 114 100 Pulse Ox 95 96 Oxygen Delivery Method Room Air Room Air MDM MDM MDM Narrative Medical decision making narrative: Comprehensive work-up was pursued. In the differential diagnosis is CHF versus COPD versus pulmonary embolism. He may have more undiagnosed COPD. EKG will be obtained along with basic laboratory work including a single troponin and BNP. Given his history of pulmonary emboli without clotting disorder diagnosed, I do feel that CTA would be of most benefit. Currently, he is not tachycardic with a pulse of 81 and he has a normal pulse ox of 96 to 97% on room air. EKG was obtained and interpreted by myself. It demonstrates normal sinus rhythm at 64 bpm without ectopy or acute ST changes. No STEMI. I reviewed the patient's laboratory work. He has a normal white count of 8.9, hemoglobin normal at 14.4, platelet count normal at 175. BMP shows chloride slightly elevated at 108 with normal sodium of 140, potassium normal at 4.3. High-sensitivity troponin is normal at 19. BNP is normal at 13.5. CT a of the chest was obtained. I reviewed the images. I also reviewed the radiology report which shows acute bilateral pulmonary emboli right greater than left. This was in comparison to a CT from 2018, so these are new. He was ambulated in the emergency department with resultant pulse ox normal and nonhypoxic. He states he feels well even sitting here, and sometimes even walking, its only when he lifts or goes upstairs. I attempted to page his provider relations consultant but have not heard a reply. Regardless, I feel he be discharged safely home with follow-up as I do not feel that he needs observation because he is not hypoxic or tachycardic. He was given his first dose of Xarelto 15 mg and a prescription written for a starter pack. Return instructions to the emergency department were reviewed. Disposition is discharged home in stable condition. Lab Data Attestation: I reviewed the patient's lab results. Labs: Laboratory Results - last 24 hr 02/11/2205/10/22 05/10/22 14:16 14:16 14:16 WBC 8.9 RBC 4.62 Hgb 14.4 Hct 42.1 MCV 91.1 MCH 31.2 MCHC 34.2 RDW Std Deviation 39.5 RDW Coeff of Rigobetro 11.9 Plt Count 175 MPV 9.3 Immature Gran % (Auto) 0.100 Neut % (Auto) 69.5 Lymph % (Auto) 23.6 Vilas % (Auto) 5.6 Eos % (Auto) 1.0 Baso % (Auto) 0.2 Absolute Neuts (auto) 6.2 Absolute Lymphs (auto) 2.11 Nucleated RBC % 0 Sodium 140 Potassium 4.3 Chloride 108 H Carbon Dioxide 25.0 Anion Gap 7 BUN 13 Creatinine 0.93 Estim Creat Clear Calc 90.84 Est GFR (MDRD) Af Amer 104 Est GFR (MDRD) Non-Af 86 BUN/Creatinine Ratio 13.9 Glucose 97 Calcium 9.0 Troponin I High Sens 19 B-Natriuretic Peptide 13.5 Radiography Diagnostic Testing: Clinical Impression(s) from Imaging Studies Chest CTA 05/10/22 14:03 IMPRESSION: Bilateral acute pulmonary emboli worse in the right side as described. Electronically Signed: Crow Avila MD at 15:30 EST , Discharge Plan Triage Chief Complaint: Shortness of Breath ED Provider: Panda Herrera Dx/Rx/DC Orders Clinical Impression: Bilateral pulmonary embolism, Dyspnea on exertion Prescriptions: New Xarelto DVT-PE Treat 30d Start 15 mg (42)- 20 mg (9) tablets,dose pack See Rx Instructions .ROUTE .COMPLEX Qty: 51 0RF Rx Instructions: take one-15 mg tablet twice daily for 21 days, then one-20 mg tablet once daily; must take with meal/food No Action ferrous sulfate [iron] 325 mg (65 mg iron) tablet 325 mg PO DAILY metronidazole 500 mg tablet 500 mg PO TID Qty: 30 0RF levofloxacin [Levaquin] 500 mg tablet 500 mg PO DAILY Qty: 14 0RF omeprazole 20 MG capsule 20 mg PO DAILY Lactobac acidoph-fructooligos 1 EACH tablet 1 ea PO BID Qty: 20 0RF Primary Care Provider: Norman Harper Referrals: Keanu Daniels MD [Med Staff - Active Staff] - Keep Rc appointment Norman Harper [Primary Care Provider] - Activity Restrictions/Additional Instructions: You have recurrent bilateral pulmonary emboli. Continue the prescription for Xarelto and follow-up with pulmonology as scheduled next week. Return with any increased difficulty breathing, shortness of breath, chest pain, new or worsening symptoms. Disposition Disposition: Home, Self Care
[2022-05-10 14:23] LABS: Absolute Lymphocyte Count 2.11 X10^3/uL (0.83-4.51); Absolute Neutrophil Count 6.2 X10^3/uL (2.0-7.7); Basophil# 0.02 X10^3/uL; Basophil% 0.2 % (0-1); Eosinophil# 0.09 X10^3/uL; Hematocrit 42.1 % (40-54); Hemoglobin 14.4 g/dL (13.0-16.5); Lymphocyte # 2.11 X10^3/ul (0.83-4.51); Lymphocyte % 23.6 % (19-41); Mean Corp Hgb Conc 34.2 g/dL (32-36); Mean Corpuscular Hgb 31.2 pg (27.0-32.0); Mean Corpuscular Volume 91.1 fL (80-94); Mean Platelet Vol. 9.3 fl (6.2-12.0); Monocyte% 5.6 % (0-10); NRBC Flagged by Analyzer 0 % (0-5); Neutrophil % 69.5 % (47-70); Platelet Count 175 K/mm3 (150-450); RBC Distribution Width CV 11.9 % (11.6-14.6); RBC Distribution Width SD 39.5 fl (35.1-43.9); Red Blood Count 4.62 M/mm3 (4.6-6.2); White Blood Count 8.9 K/mm3 (4.4-11.0)
[2022-05-10 14:44] LABS: Anion Gap 7 (5-15); BNP,B-Type NATRIURETIC PEPTIDE 13.5 pg/mL (0-100); BUN 13 mg/dL (7-18); BUN/Creat Ratio 13.9 RATIO (10-20); Chloride 108 mmol/L (98-107); Creatinine, Serum 0.93 mg/dL (0.70-1.30); EST Glomerular Filtration Rate 86 mL/min (>60); Est Glom Filt Rate - Afr Amer 104 mL/min (>60); Estimated Creatinine Clearance 90.84 ml/min; Glucose 97 mg/dL (74-106); Potassium 4.3 mmol/L (3.5-5.1); Sodium Level 140 mmol/L (136-145); Troponin-I HS 19 pg/mL (3.0-78.0)
[2022-05-10 14:57] VITALS: BP 136/82; PULSE 64; RESP 16; O2SAT 96
--- NOTE | 2022-05-10 16:08 | NURSING ---
[id number] [place]LAKE [phone] CALLED OFFICE AND LEFT MESSAGE
[2022-05-10 16:23] VITALS: O2SAT 96
[2022-05-10] MEDS: Rivaroxaban 15 MG Tablet PO (16:24)
[2022-05-10 17:00] VITALS: BP 131/78; PULSE 79; O2SAT 97
== END 2022-05-10 17:01 | disposition home or self-care (01) ==
PROVIDERS: Emergency Provider Emergency Medicine; Visit Provider Emergency Medicine
DX: I26.99 Other pulmonary embolism without acute cor pulmonale (principal); Z87.891 Personal history of nicotine dependence; R06.02 Shortness of breath; Z86.718 Personal history of other venous thrombosis and embolism; Z79.01 Long term (current) use of anticoagulants
CPT/HCPCS: 71275; 80048; 83880; 84484; 85025; 93005; 99285; Q9967; A4216

== ENCOUNTER → 2022-08-09 | Outpatient (CLI) | payer MEDICARE, BC, SELFPAY ==
--- NOTE | 2022-08-09 12:35 | ECHOD_ITS ---
Reason For Study: PHTN, PE Procedure This was a 2D Doppler, Color Flow transthoracic echocardiogram. Exam performed in department. Left Ventricle Normal LV size. The estimated ejection fraction is 65 %. Normal diastology for age. No regional wall motion abnormalities noted. Right Ventricle Normal RV size. Normal systolic function. Atria Normal left atrium. Normal right atrium. No doppler evidence for ASD. Mitral Valve There is mild to moderate mitral annular calcification. There is no mitral valve stenosis. No mitral valve insufficiency. Tricuspid Valve There is no tricuspid stenosis. Trivial tricuspid valve insufficiency. Pulmonary artery systolic pressure is 35 mmHg. Aortic Valve Trisinus/trileaflet aortic valve. There is no aortic stenosis. Trivial aortic valve insufficiency. Pulmonic Valve There is no pulmonic valvular stenosis. Trivial pulmonic valve insufficiency. Great Vessels Normal aortic root. Pericardium/Pleural No pericardial effusion. MMode/2D Measurements & Calculations LVIDd: 5.1 cm IVSd: 1.4 cm Ao root diam: 3.8 cm LVIDs: 3.3 cm LVPWd: 0.98 cm RVDd: 4.6 cm FS: 36.6 % LAV(MOD-bp): 94.1 ml LVAd ap4: 39.4 cm2 LVAd ap2: 35.2 cm2 LAV(MOD-bp) Indexed: 37.7 ml/m2 LVLd ap4: 9.3 cm LVLd ap2: 9.0 cm LAV(MOD-sp2): 98.9 ml EDV(MOD-sp4): 140.6 ml EDV(MOD-sp2): 117.1 ml LAV(MOD-sp4): 85.6 ml EDV(sp4-el): 141.6 ml EDV(sp2-el): 116.4 ml LVAs ap4: 21.5 cm2 LVAs ap2: 21.3 cm2 LVLs ap4: 7.6 cm LVLs ap2: 7.7 cm ESV(MOD-sp4): 53.0 ml ESV(MOD-sp2): 51.7 ml ESV(sp4-el): 51.7 ml ESV(sp2-el): 50.0 ml EF(MOD-sp4): 62.3 % EF(MOD-sp2): 55.8 % EF(sp4-el): 63.5 % SV(MOD-sp4): 87.6 ml SV(MOD-sp2): 65.4 ml SV(sp4-el): 89.9 ml LA dimension(2D): 4.5 cm LA A4 area: 26.4 cm2 RA A4 area: 22.9 cm2 TAPSE: 3.0 cm Time Measurements MV dec time: 0.36 sec Doppler Measurements & Calculations MV E max karlos: 73.5 cm/sec Lat Peak E' Karlos: 13.9 cm/sec Med Peak E' Karlos: 8.4 cm/sec MV A max karlos: 70.6 cm/sec E/E' lat: 5.3 E/E' med: 8.8 MV E/A: 1.0 MV dec slope: 204.6 cm/sec2 Ao V2 max: 175.2 cm/sec LV V1 max: 125.4 cm/sec Ao max P.3 mmHg LV V1 max P.3 mmHg Ao V2 mean: 117.9 cm/sec LV V1 mean P.6 mmHg Ao mean P.4 mmHg LV V1 mean: 90.1 cm/sec Ao V2 VTI: 40.8 cm LV V1 VTI: 27.8 cm AV (velocity ratio): 0.68 PA V2 max: 104.2 cm/sec TR max karlos: 264.8 cm/sec TR max P.0 mmHg ECHO/Echo Complete Interpretation Summary The estimated ejection fraction is 65 %. Trivial aortic valve insufficiency. Trivial pulmonic valve insufficiency. Ordering Physician: Keanu Daniels V Referring Physician: Keanu Daniels V Performed By: Eden Posey RDCS
== END | disposition home or self-care (01) ==
LOC: CVS 12:34
PROVIDERS: PCP Family Medicine; Referring Provider Internal Medicine Pulmonary Disease; Visit Provider Internal Medicine Pulmonary Disease
DX: I27.20 Pulmonary hypertension, unspecified (principal)
CPT/HCPCS: 93306

== ENCOUNTER → 2022-10-25 | Outpatient (CLI) | payer MEDICARE, BC, SELFPAY ==
[2022-10-26 13:08] LABS: Lyme Scn Total Ab w/Rflx Negative (Negative)
== END | disposition home or self-care (01) ==
PROVIDERS: PCP Family Medicine; Referring Provider Physician Assistant Surgical; Visit Provider Physician Assistant Surgical
DX: R50.9 Fever, unspecified (principal)
CPT/HCPCS: 36415; 86618